=== PATIENT | male | born 1990 ===

== ENCOUNTER 2017-03-03 22:13 | Emergency (ER) | payer OTHER ==
--- NOTE | 2017-03-03 23:14 | ED ORDER SUMMARY ---
..... Patient: JF ALY OrderSheet [facility] VisitID: [id number] [place] [address] 26y, M Registration Date/Time: 03/03/2017 ORDER SHEET Weight: 181.4 kg (stated) Allergies: None GENERAL ORDERS: Knee 4V Right Urgent (22:38 03/03/2017 Lynda MILTON) (Ack 22:40 [facility] ER Channel Marketing Coordinator) (23:02 Corey) Knee Immobilizer (23:12 03/03/2017 Lynda MILTON) (Ack 23:23 AScwanda) (23:33 IJurca ER Tech1) Crutches (23:12 03/03/2017 Lynda MILTON) (Ack 23:23 AScwanda) (23:33 IJurca ER Tech1) MEDICATION ORDERS: Hydrocodone-APAP PO 10/650 mg (NOW) (23:13 03/03/2017 Lynda MILTON) (Ack 23:23 ASchmkamryn) (23:27 ASchmuck) IV FLUIDS: ORDER SHEET NOTES: [Electronically signed by Marci Ash (23:47 03/03/2017)] [Electronically signed by Jaime Flannery MD (10:17 03/04/2017)] [Electronically locked/signed by Marci Ash (23:47 03/03/2017)]
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
--- NOTE | 2017-03-03 23:14 | ED ORDER SUMMARY ---
..... Patient: JF ALY OrderSheet [facility] VisitID: [id number] [place] [address] 26y, M Registration Date/Time: 03/03/2017 ORDER SHEET Weight: 181.4 kg (stated) Allergies: None GENERAL ORDERS: Knee 4V Right Urgent (22:38 03/03/2017 Lynda MILTON) (Ack 22:40 [facility] ER Refrigerator Mover) (23:02 Corey) Knee Immobilizer (23:12 03/03/2017 Lynda MILTON) (Ack 23:23 AScwanda) (23:33 IJurca ER Tech1) Crutches (23:12 03/03/2017 yLnda MILTON) (Ack 23:23 AScwanda) (23:33 IJurca ER Tech1) MEDICATION ORDERS: Hydrocodone-APAP PO 10/650 mg (NOW) (23:13 03/03/2017 Lynda MILTON) (Ack 23:23 ASchmkamryn) (23:27 ASchmuck) IV FLUIDS: ORDER SHEET NOTES: [Electronically signed by Marci Ash (23:47 03/03/2017)] [Electronically signed by Jaime Flannery MD (10:17 03/04/2017)] [Electronically locked/signed by Marci Ash (23:47 03/03/2017)]
--- NOTE | 2017-03-03 23:51 | DIAGNOSTIC IMAGING REPORT ---
PROCEDURE: XR KNEE 4 VIEWS - RIGHT INDICATION: TRAUMA/INJURY TECHNIQUE: Four views. COMPARISON: None. FINDINGS: No fracture or suspicious osseous lesion. Normal joint spaces. Small effusion. IMPRESSION: 1. Small effusion.
--- NOTE | 2017-03-04 10:17 | ED MAR SUMMARY ---
..... Medication Administration Record [facility] [address] [place] [address] Patient: JF ALY Visit ID: [id number] 26y, M Weight: 181.4 kg Height/Length: 76 in BMI: 48.7 ALLERGIES: None Given 23:27 03/03/2017 Marci Ash, Medication Administered: HYDROCODONE-APAP [PO] (HYDROCODONE-ACETAMINOPHEN), Dose: 2 tab 5/325 mg Tablets PO. Medication Ordered: Hydrocodone-APAP PO 10/650 mg (NOW).
--- NOTE | 2017-03-04 10:17 | ED DISCHARGE INSTRUCTIONS ---
Patient: JF ALY General Instructions [facility] VisitID: [id number] [place] [address] 26y, M Registration Date/Time: 03/03/2017 Sprain of the medial collateral ligament of the left knee. INSTRUCTIONS Use crutches until released. Wear knee immobilizer until released. No weight bearing until released. Warnings: GENERAL WARNINGS: Return or contact your physician immediately if your condition worsens or changes unexpectedly, if not improving as expected, or if other problems arise. Prescription Medications: Hydrocodone/APAP 5mg/325mg: take 1 to 2 orally every 6 hours as needed for pain. Dispense fifteen (15). No refills. OTC Medications: Motrin (available over the counter): take according to label instructions. Follow-up: Follow up with your doctor in six days. Call for an appointment. Understanding of the discharge instructions verbalized by patient and family. ADDITIONAL INFORMATION Knee Sprain, Collateral Ligaments The knee is a hinge joint supported by four strong ligaments. The two ligaments inside the knee (cruciate ligaments) protect this joint from excess forward and backward movement. The ligaments on the outside of the joint (collateral ligaments) prevent [id number] motion. The medial collateral ligament (MCL) is located on the inner side of the joint; and the lateral collateral ligament (LCL) is on the outer side of the joint. You have sprained one or both collateral ligaments. A sprain is a tearing of a ligament. The tear may be partial or complete. Diagnosis is made by physical exam. In the case of an acute injury, the knee may be too swollen or painful to examine fully. A more accurate exam can be performed after the initial swelling goes down. Symptoms of a knee sprain include immediate knee swelling, pain, and difficulty walking.Initial treatment includes resting the joint, splinting to reduce movement of the joint, use of ice to reduce swelling and pain. Non-steroidal anti-inflammatory drugs (NSAIDs), such as ibuprofen, may be prescribed. Most sprains will heal in one to four weeks.A severe injury can take three to four months to heal and requires rehabilitation exercises. Surgery is usually not required for sprains involving only the collateral ligaments. Home care The following guidelines will help you care for your injury at home: Stay off the injured leg as much as possible until you can walk on it without pain. If you have a lot of pain while walking, crutches, or a walker may be prescribed. (These can be rented or purchased at many pharmacies and surgical or orthopedic supply stores.) Follow your doctor's advice regarding when to begin bearing weight on that leg. If you were given a avop-gqq-yxpq closure knee brace, you can remove this to bathe, but leave it in place when walking, sitting, or lying down (unless told otherwise). Apply an ice pack (ice cubes in a plastic bag, wrapped in a towel) over the injured area for 20 minutes every 12 hours the first day. If a pkwe-hka-wylu closure knee brace was applied, you can open this to apply the ice pack directly to the knee. Continue with ice packs 34 times a day for the next two days, then as needed for the relief of pain and swelling. You may use acetaminophen or ibuprofen to control pain, unless another pain medicine was prescribed. If you have chronic liver or kidney disease or ever had a stomach ulcer or GI bleeding, talk with your doctor before using these medicines. Follow-up care Follow up with the referral doctor, or as advised by our staff. Any X-rays you had today dont show any broken bones, breaks, or fractures. Sometimes fractures dont show up on the first X-ray. Bruises and sprains can sometimes hurt as much as a fracture. These injuries can take time to heal completely. If your symptoms dont improve or they get worse, talk with your doctor. You may need a repeat X-ray. When to seek medical care Get prompt medical attention if any of the following occur: Pain or swelling worsens Shortness of breath or chest pain Swelling or redness or pain of the calf or thigh Crutch Walking Crutch Adjustment Make sure the crutches you use are adjusted to fit you. When you stand, there should be room to fit 2-3 fingers between the top of the crutch and your armpit. Your elbow should be slightly bent when holding the hand school occupational therapist. Crutch Walking: Place the crutches forward 12" in front of and 6" to the side of your feet. Lean your weight forward as you push down on the handgrips. Your weight should be on your hands and yourstrong leg, not your armpits . Let your body swing through, landing on the strong leg. Advance the crutches forward again. The crutch and the injured leg should move together. Going Up Steps: ("Up with the good") With both crutches on the same step as your feet, push down on the handgrips. Balancing with very light pressure on the weak leg, let your hands support your weight as you raise your strong leg onto the next higher step. Transfer all your weight to your strong leg (still bent) as you move the crutches up to the next step alongside the strong leg. With your weight evenly balanced on the two crutches and your strong leg, straighten your strong knee as you raise the weak leg up to the next step. Going Down Steps: ("Down with the bad") With both crutches on the same step as your feet, push down on the handgrips. With your weight evenly balanced on the two crutches and your strong leg, bend your strong knee as you lower the weak leg down to the next step. Let your strong leg support you (still bent) as you move the crutches down alongside the weak leg. Transfer your weight to your hands, balancing with very light pressure on the weak leg as you lower your strong leg alongside your weak leg. Knee Immobilizer A KNEE IMMOBILIZER is used to provide support and limit movement of the knee. This will make you more comfortable as your injury heals. Home Use: 1) Unless told otherwise, the knee brace should be worn whenever you are out of bed. You may wear it in bed while asleep for the first few nights or until the pain starts to go away. Otherwise, remove the brace at night to avoid muscle stiffness from lack of joint movement. 2) You can open the velcro brace to dress, bathe and apply ice packs as directed. Get Prompt Medical Attention if any of the following occur: -- Worsening pain in the knee -- Weakness or numbness or tingling in the foot -- Increased swelling, redness or warmth of the knee joint You have been given the following additional information: Knee Sprain: Collateral Ligaments Crutch Walking Knee Immobilizer No weight bearing until released. (Electronically signed by Jaime Flannery MD 03/04/2017 10:17)
--- NOTE | 2017-03-04 10:17 | ED MED RECONCILIATION SUMMARY ---
Patient: JF ALY Medication Reconciliation Report [facility] VisitID: [id number] [place] [address] 26y, M Registration Date/Time: 03/03/2017 Weight: 181.4 kg Height/Length: 76 in. BMI: 48.7 ALLERGIES: None The patient's Home Medications are listed below: THE FOLLOWING MEDICATIONS NEED TO BE RECONCILED: Ibuprofen Oral Tylenol Oral The source(s) of the original Home Medication information: patient The following Medications were given to the patient in the Emergency Department: Hydrocodone-APAP [PO] PO 2 tab, administered: 03/03/2017 11:27:00 PM The following Medications were prescribed to the patient: Motrin (available over the counter): take according to label instructions. -- Jaime Flannery MD Hydrocodone/APAP 5mg/325mg: take 1 to 2 orally every 6 hours as needed for pain. Dispense fifteen (15). No refills. -- Jaime Flannery MD
--- NOTE | 2017-03-04 10:17 | ED MAR SUMMARY ---
..... Medication Administration Record Located Within [facility] [address] [place] [address] Patient: JF ALY Visit ID: [id number] 26y, M Weight: 181.4 kg Height/Length: 76 in BMI: 48.7 ALLERGIES: None Given 23:27 03/03/2017 Marci Ash, Medication Administered: HYDROCODONE-APAP [PO] (HYDROCODONE-ACETAMINOPHEN), Dose: 2 tab 5/325 mg Tablets PO. Medication Ordered: Hydrocodone-APAP PO 10/650 mg (NOW).
--- NOTE | 2017-03-04 10:17 | ED MED RECONCILIATION SUMMARY ---
Patient: JF ALY Medication Reconciliation Report [facility] VisitID: [id number] [place] [address] 26y, M Registration Date/Time: 03/03/2017 Weight: 181.4 kg Height/Length: 76 in. BMI: 48.7 ALLERGIES: None The patient's Home Medications are listed below: THE FOLLOWING MEDICATIONS NEED TO BE RECONCILED: Ibuprofen Oral Tylenol Oral The source(s) of the original Home Medication information: patient The following Medications were given to the patient in the Emergency Department: Hydrocodone-APAP [PO] PO 2 tab, administered: 03/03/2017 11:27:00 PM The following Medications were prescribed to the patient: Motrin (available over the counter): take according to label instructions. -- Jaime Flannery MD Hydrocodone/APAP 5mg/325mg: take 1 to 2 orally every 6 hours as needed for pain. Dispense fifteen (15). No refills. -- Jaime Flannery MD
== END 2017-03-03 23:37 | disposition home or self-care (01) ==
LOC: ED SRH 22:13
DX: S83.412A Sprain of medial collateral ligament of left knee, initial encounter (principal); W50.0XXA Accidental hit or strike by another person, initial encounter; Y93.9 Activity, unspecified; Y92.328 Other athletic field as the place of occurrence of the external cause; Y99.9 Unspecified external cause status